=== PATIENT | female | born 1950 | race Asian ===

== ENCOUNTER 2018-05-02 10:08 | Day surgery (SDC) | payer MEDICARE, OTHER ==
[~2018-05-02] VITALS: Ht 160 cm; Wt 58.1 kg
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
[2018-05-02 11:23] LABS: BASOPHILS % (AUTO) 0 % (0-10); EOSINOPHILS % (AUTO) 0 % (0-10); HEMATOCRIT 26 % (35-52); HEMOGLOBIN 8.8 G/DL (11.5-16.0); LYMPHOCYTES # (AUTO) 1.3 X 10^3 (1.0-4.0); LYMPHOCYTES % (AUTO) 15 % (12-44); MEAN CORPUSCULAR HEMOGLOBIN 30 PG (25-34); MEAN CORPUSCULAR HGB CONC 34 G/DL (32-36); MEAN CORPUSCULAR VOLUME 88 FL (80-99); MEAN PLATELET VOLUME 9.5 FL (7.4-10.4); MONOCYTES # (AUTO) 0.3 X 10^3 (0.0-1.0); MONOCYTES % (AUTO) 3 % (0-12); NEUTROPHILS % (AUTO) 81 % (42-75); PLATELET COUNT 293 10^3/uL (130-400); RED BLOOD COUNT 2.95 10^6/uL (4.35-5.85); RED CELL DISTRIBUTION WIDTH 13.4 % (10.0-14.5); WHITE BLOOD COUNT 8.7 10^3/uL (4.3-11.0)
[2018-05-02 11:48] LABS: ALANINE AMINOTRANSFERASE 16 U/L (0-55); ALKALINE PHOSPHATASE 57 U/L (40-136); BILIRUBIN,TOTAL 0.2 MG/DL (0.1-1.0); BUN/CREATININE RATIO 45; CALCIUM 8.9 MG/DL (8.5-10.1); CARBON DIOXIDE 23 MMOL/L (21-32); CHLORIDE 105 MMOL/L (98-107); CREATININE SERUM 0.67 MG/DL (0.60-1.30); GFR ESTIMATED > 60; GLUCOSE 170 MG/DL (70-105); POTASSIUM 3.6 MMOL/L (3.6-5.0); SODIUM 135 MMOL/L (135-145); TOTAL PROTEIN 6.2 GM/DL (6.4-8.2)
[2018-05-02] MEDS ORDERED: RANI150T11 PO (12:30)
[2018-05-02] MEDS ORDERED: NS IV 1000 ML 1,000 ML ONE (12:44)
[2018-05-02] MEDS ORDERED: NS IV 1000 ML 1,500 ML IV ONE (13:00)
[2018-05-02 14:33] VITALS: BP_SYST 111; BP_SYST 118; BP_SYST 98; BP_DIAS 63; BP_DIAS 65; BP_DIAS 75
[2018-05-02] MEDS ORDERED: PROPOFOL INJECTION 50 ML IV ONE (15:41)
[2018-05-02] MEDS ORDERED: MIDAZOLAM 2 MG/2 ML (VERSED) VIAL ONE (15:41)
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
[2018-05-02] MEDS ORDERED: HURRICAINE EXT TUBE (BENZOCAINE) ONE (15:49)
--- NOTE | 2018-05-02 16:12 | Anesthesia-General Post-Op ---
MAC Patient Condition Mental Status/LOC: Same as Preop Cardiovascular: Satisfactory Nausea/Vomiting: Absent Respiratory: Satisfactory Pain: Controlled Complications: Absent Post Op Complications Complications None Follow Up Care/Instructions Patient Instructions None needed. Anesthesiology Discharge Order Discharge Order Patient is doing well, no complaints, stable vital signs, no apparent adverse anesthesia problems. No complications reported per nursing. LORETO RAMOS CRNA May 02, 2018 16:12
--- NOTE | 2018-05-02 16:19 | Progress Note-Post Operative ---
Post-Operative Progess Note Surgeon (s)/Furniture Rental Consultant (s) Surgeon JAY VERMA DO Furniture Rental Consultant: none Pre-Operative Diagnosis Melena, Anemia, Vaso-vagal Rxn, Cardiac Ectasia Post-Operative Diagnosis Clot covering Duodenal Ulcer Retained food in stomach Procedure & Operative Findings Date of Procedure 05/02/18 Procedure Performed/Findings EGD Anesthesia Type IV sedation by HIGH SCHOOL ASSISTANT FOOTBALL COACH Estimated Blood Loss Estimated blood loss (mL): none Specimens/Packing Specimens Removed none JAY VERMA DO May 02, 2018 16:19
[2018-05-02] MEDS ORDERED: HURRICAINE EXT TUBE (BENZOCAINE) XX PRN (16:30)
[2018-05-02] MEDS ORDERED: PANTOPRAZOLE INJECTION 200 MG in NS (IVPB) 50 ML IV SCH (16:30)
[2018-05-02 16:46] VITALS: BP 114/60
[2018-05-02] MEDS ORDERED: ACETAMINOPHEN 500 MG TAB (TYLENOL) PO PRN (18:00)
[2018-05-02] MEDS ORDERED: CATHETER FLUSH 10 ML SYR IV PRN (18:00)
[2018-05-02] MEDS ORDERED: ONDANSETRON 4 MG/2 ML (SDV) Z0FRAN IV PRN (18:00)
[2018-05-02] MEDS ORDERED: FLU QUADRIvalent (5+ YOA) 2018-2019 (AFLURIA) 0.5 ML IM ONE (18:30)
[2018-05-02] MEDS: NS W/KCL 20 MEQ/L 1,000 ML IV SCH (18:36)
[2018-05-02] MEDS ORDERED: ASPI-999 PO (20:04)
[2018-05-02] MEDS ORDERED: CLOP75TA69 PO (20:05)
[2018-05-02] MEDS ORDERED: SIMV20TA3 PO (20:08)
[2018-05-02] MEDS ORDERED: METO-333 PO (20:08)
[2018-05-02] MEDS ORDERED: NITR0.4T42 SL (20:09)
[2018-05-02] MEDS ORDERED: MELA1TAB15 PO (20:09)
[2018-05-02 20:48] VITALS: BP 119/67
[2018-05-02] MEDS: SUCRALFATE 1 GM (CARAFATE) TAB PO SCH (21:22)
[2018-05-02 23:41] VITALS: BP 102/57
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
[2018-05-03] MEDS: NS W/KCL 20 MEQ/L 1,000 ML IV SCH ×2 (02:31→12:00)
[2018-05-03 04:00] VITALS: BP 108/54
[2018-05-03] MEDS: SUCRALFATE 1 GM (CARAFATE) TAB PO SCH ×2 (06:16→12:26)
[2018-05-03 08:00] VITALS: BP 97/50
--- NOTE | 2018-05-03 10:24 | Discharge Inst-Simple/Standard ---
Discharge Inst-Standard Discharge Medications New, Converted or Re-Newed RX: Transmitted to Pharmacy Patient Instructions/Follow Up Plan of Care/Instructions/FU: Please continue to take your medications as written. Activity as Tolerated: Yes Discharge Diet: No Restrictions Return to The Hospital For: Lightheadedness, dark stools, vomiting blood, if you feel you are getting worse. ELKIN CASTAÑEDA MD May 03, 2018 10:24 am
[2018-05-03] MEDS ORDERED: SIMV20TA3 PO (10:25)
[2018-05-03] MEDS ORDERED: MELA5TAB14 PO (10:25)
[2018-05-03] MEDS ORDERED: METO-333 PO (10:25)
[2018-05-03] MEDS ORDERED: NITR0.4T39 SL (10:25)
[2018-05-03] MEDS ORDERED: CLOP75TA28 PO (10:25)
[2018-05-03] MEDS ORDERED: ASPI-999 PO (10:25)
--- NOTE | 2018-05-03 10:25 | Short Stay Summary-Hospitalist ---
History of Present Illness HPI/Chief Complaint Pt is a 68yoCF with a PMH CAD, HTN, and HLD who presented to the ER with CC of black stools and dizziness. This started on 04/27 but continued to worsen over the weekend. Yesterday she felt lightheaded with standing and with a BM and so decided to seek care. She has anemia at baseline but is unsure of her baseline she just knew that she has needed to be on iron in the past. 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 Source: patient Exam Limitations: no limitations Date Seen 05/03/18 Time Seen by a Provider: 10:25 Attending Physician Elkin Villalobos MD PCP No,Local Physician Referring Physician JAY VERMA DO Date of Admission May 02, 2018 at 3:28 pm Home Medications & Allergies Home Medications Reviewed patient Home Medication Reconciliation performed by pharmacy medication reconciliations production maintenance technician and/or nursing. Patients Allergies have been reviewed. Allergies Allergies Coded Allergies oxycodone (Verified Allergy, Unknown, hives, 05/02/18) sulfamethoxazole (Verified Allergy, Unknown, 05/02/18) trimethoprim (Verified Allergy, Unknown, 05/02/18) Past Rbvgjxl-Inoauy-Bxeumj Hx Past Med/Social Hx: Reviewed Nursing Past Med/Soc Hx Patient Social History Marrital Status: Alcohol Use: Rarely Uses Number of Drinks Today: 0 Alcohol Beverage of Choice: Wine Recreational Drug Use: No Smoking Status: Never a Smoker Physical Abuse Screen: No Sexual Abuse: No Recent Foreign Travel: No Contact w/other who traveled: No Recent Hopitalizations: No Recent Infectious Disease Expo: No Immunizations Up To Date Date of Pneumonia Vaccine: May 02, 2013 Seasonal Allergies Seasonal Allergies: Yes (occasionally w pollen) Past Medical History Surgeries: Section, Orthopedic Cardiac: Coronary Artery Disease, High Cholesterol, Hypertension : No Menopausal Gastrointestinal: Gastrointestinal Bleed, Ulcer Hearing Impairment: Denies History of Blood Disorders: No Adverse Reaction to Blood Sofia: No (HAD BLOOD TRANSFUSION IN [facility] 1982 [facility]) Family History Reviewed Nursing Family Hx Cancer (father of "bone cancer that spread everywhere"), Hypertension ( mother) Review of Systems Constitutional: dizziness EENTM: no symptoms reported Respiratory: no symptoms reported Cardiovascular: No chest pain, No palpitations, No syncope Gastrointestinal: No abdominal pain; diarrhea, melena; No nausea, No vomiting Genitourinary: no symptoms reported Musculoskeletal: no symptoms reported Skin: no symptoms reported Psychiatric/Neurological: No Symptoms Reported Physical Exam Physical Exam Vital Signs Vital Signs - First Documented 05/02/18 10:20 Temp 98.2 Pulse 73 Resp 18 B/P (MAP) 125/76 (92) Pulse Ox 98 O2 Delivery Room Air Capillary Refill : Less Than 3 Seconds Height, Weight, BMI Height: 5'3.00" Weight: 128lbs. 3.0oz. [id number]; 22.7 BMI Method:Stated General Appearance: No Apparent Distress, WD/WN HEENT: PERRL/EOMI, Moist Mucous Membranes Neck: Non Tender, Supple Respiratory: Lungs Clear, No Respiratory Distress Cardiovascular: Regular Rate, Rhythm, No Murmur Gastrointestinal: Normal Bowel Sounds, Non Tender, Soft Extremity: Normal Capillary Refill, No Calf Tenderness Neurologic/Psychiatric: Alert, Oriented x3, Normal Mood/Affect Skin: Normal Color, Warm/Dry Results Results/Procedures Labs Laboratory Tests 05/02/18 10:52 Patient resulted labs reviewed. Short Stay Diagnosis Discharge Diagnosis-Short Stay Admission Diagnosis Upper GI bleed Final Discharge Diagnosis Upper Gi Bleed Conclusion Plan Upper GI Bleed EGD done yesterday with ulcer and clot covering ulcer Plan to follow up on Monday (05/07) with Dr Verma for colonoscopy Discussed with Dr Verma who will arrange iron infusion HTN Hold home BP for soft BPs CAD Hold ASA/Plavix from GI bleed No history of stents Clinical Quality Measures DVT/VTE Risk/Contraindication: Risk Factor Score Per Nursin RFS Level Per Nursing on Admit: 2=Moderate ELKIN VILLALOBOS MD May 03, 2018 10:25 am
[2018-05-03] MEDS ORDERED: ASPI-983 PO (10:27)
[2018-05-03] MEDS ORDERED: MULT-35 PO (10:29)
[2018-05-03] MEDS ORDERED: CALC-78 PO (10:29)
[2018-05-03] MEDS ORDERED: OMEG10005 PO (10:29)
[2018-05-03] MEDS ORDERED: SUCR1TAB PO (10:35)
[2018-05-03] MEDS ORDERED: PANT40TA2 PO (10:35)
--- NOTE | 2018-05-03 11:37 | Progress Note ---
Subjective Time Seen by a Provider: 10:08 Subjective/Events-last exam Pt seen and examined, states she feels fine and slightly stronger than yesterday. She is tolerating diet. Review of Systems General: No Chills, No Night Sweats Pulmonary: No Dyspnea, No Cough Cardiovascular: No: Chest Pain, Palpitations Gastrointestinal: No: Nausea, Vomiting, Abdominal Pain Objective Exam Vital Signs Date Time Temp Pulse Resp B/P (MAP) Pulse Ox O2 Delivery O2 Flow Rate FiO2 05/03/18 08:00 98.0 85 20 97/50 (66) 100 Room Air 05/03/18 04:00 98.1 79 16 108/54 (72) 100 Room Air 05/02/18 23:41 98.4 87 18 102/57 (72) 100 Room Air 05/02/18 20:48 98.8 85 20 119/67 (84) 97 Room Air 05/02/18 17:15 Room Air 05/02/18 16:46 98.2 82 20 114/60 (78) 96 Room Air 05/02/18 15:25 98.3 83 18 117/67 98 Room Air 05/02/18 14:33 111/63 (79) 118/75 (89) 98/65 (76) I & O 05/03/18 07:00 Intake Total 1270 ml Output Total 750 ml Balance 520 ml Capillary Refill : Less Than 3 Seconds General Appearance: No Apparent Distress, WD/WN HEENT: PERRL/EOMI, Pharynx Normal Respiratory: Chest Non Tender, Lungs Clear, Normal Breath Sounds, No Accessory Muscle Use, No Respiratory Distress Cardiovascular: Regular Rate, Rhythm, No Edema, No Murmur Peripheral Pulses: 2+ Dorsalis Pedis (R), 2+ Left Dors-Pedis (L), 2+ Radial Pulses (R), 2+ Radial Pulses (L) Gastrointestinal: normal bowel sounds, non tender, soft, no organomegaly, no pulsatile mass Extremity: Normal Capillary Refill, Normal Inspection, Normal Range of Motion, Non Tender, No Calf Tenderness, No Pedal Edema Neurologic/Psychiatric: Alert, Oriented x3, No Motor/Sensory Deficits, Normal Mood/Affect, furnace filler II-XII Norm as Tested Results Lab Laboratory Tests 05/02/18 17:30: Assessment/Plan Assessment/Plan Assessment/Plan Hematoma over Suspected Bleeding Duodenal ulcer - this was cause of her Melena, Anemia, Vaso-Vagal reaction Pt will be sent home, do colon prep on monday and is scheduled for EGD and colonoscopy on Monday. Colonscopy is mainly for screening, EGD is being done because of retained food in stomach (need to make sure no ulcers anywhere else). She needs to stop ASA and continue protonix PO as an outpt. All questions answered to her satisfaction. She may get iron infusion on Monday. Cardiac Ectasia Abnormal Coagulation secondary to Plavix and ASA I discussed both procedures with her; risks and complications not limited to pain, bleeding, esophageal perforation or intestinal perforation. All questions answered to her satisfaction. Clinical Quality Measures DVT/VTE Risk/Contraindication: Risk Factor Score Per Nursin RFS Level Per Nursing on Admit: 2=Moderate JAY VERMA DO May 03, 2018 11:37
[2018-05-03 12:00] VITALS: BP 106/58
[2018-05-03 14:39] VITALS: BP 106/58
[2018-05-07] MEDS ORDERED: PANT40TA2 PO (11:43)
[2018-05-07] MEDS ORDERED: SUCR1TAB PO (11:43)
== END 2018-05-03 14:47 | disposition home or self-care (01) ==
LOC: ER 10:09 → 4TH 15:26 → ENDO 15:26 → UNDOADMOB 15:28 → 4TH 15:28 → ENDO 05-03 14:47 → UNDODISOB 05-03 14:47
PROVIDERS: ATTEND Surgery
DX: K26.4 Chronic or unspecified duodenal ulcer with hemorrhage (principal); R79.1 Abnormal coagulation profile; T45.8X5A Adverse effect of other primarily systemic and hematological agents, initial encounter; T39.015A Adverse effect of aspirin, initial encounter; I10 Essential (primary) hypertension; I25.10 Atherosclerotic heart disease of native coronary artery without angina pectoris; D64.9 Anemia, unspecified; R55 Syncope and collapse; E78.5 Hyperlipidemia, unspecified; K21.9 Gastro-esophageal reflux disease without esophagitis; Z79.899 Other long term (current) drug therapy
CPT/HCPCS: 36415; 80053; 82728; 83540; 85025; 86850; 86900; 86901; 93005; 96360

== ENCOUNTER 2018-05-07 09:05 | Day surgery (SDC) | payer MEDICARE, OTHER ==
[~2018-05-07] VITALS: Ht 157.5 cm; Wt 54.5 kg
[~2018-05-07 09:05] MED LIST: ASPI-983 PO; ASPI-999 PO; CALC-78 PO; CLOP75TA28 PO; CLOP75TA69 PO; MELA1TAB15 PO; MELA5TAB14 PO; METO-333 PO; MULT-35 PO; NITR0.4T39 SL; NITR0.4T42 SL; OMEG10005 PO; PANT40TA2 PO; RANI150T11 PO; SIMV20TA3 PO; SUCR1TAB PO
[2018-05-07 10:25] VITALS: BP 115/75
[2018-05-07] MEDS ORDERED: PROPOFOL INJECTION 50 ML IV ONE (10:49)
--- NOTE | 2018-05-07 10:52 | Progress Note-Pre Operative ---
Pre-Operative Progress Note H&P Reviewed The H&P was reviewed, patient examined and no changes noted. Time Seen by Provider: 10:47 Date H&P Reviewed: May 07, 2018 Time H&P Reviewed: 10:47 Pre-Operative Diagnosis: Duodenal Ulcer, GI bleed, Screening colonoscopy JAY VERMA DO May 07, 2018 10:52
[2018-05-07] MEDS ORDERED: LACTATED RINGERS 1,000 ML IV STA (10:53)
[2018-05-07] MEDS ORDERED: MIDAZOLAM 2 MG/2 ML (VERSED) VIAL ONE (11:00)
[2018-05-07] MEDS ORDERED: HURRICAINE EXT TUBE (BENZOCAINE) XX PRN (11:00)
[2018-05-07] MEDS ORDERED: meTOprolol 5 MG/5 ML (LOPRESSOR) VIAL ONE (11:06)
[2018-05-07] MEDS ORDERED: GLYCOPYRROLATE 0.2 MG/ML (ROBINUL) 2 ML VIAL ONE (11:13)
--- NOTE | 2018-05-07 11:42 | Progress Note-Post Operative ---
Post-Operative Progess Note Surgeon (s)/Dressmaker Or Tailor (s) Surgeon JAY VERMA DO Dressmaker Or Tailor: none Pre-Operative Diagnosis Duodenal Ulcer, GI bleed, Screening colonoscopy Post-Operative Diagnosis Duodenal Ulcer - healed Gastritis/Duodenitis Small Hiatal Hernia Colon Polyps Internal Hemorrhoids Procedure & Operative Findings Date of Procedure 05/07/18 Procedure Performed/Findings 1. EGD with biopsy 2. Colonoscopy with hot bx Anesthesia Type IV Sedation by TITLE VEHICLE SERVICE ATTENDANT Estimated Blood Loss Estimated blood loss (mL): scant Specimens/Packing Specimens Removed Duodenal bx Antral bx TI bx Colon polyp hot bx, Transverse, Descending, Sigmoid colon JAY VERMA DO May 07, 2018 11:42
[2018-05-07] MEDS ORDERED: PANT40TA2 PO (11:43)
[2018-05-07] MEDS ORDERED: SUCR1TAB PO (11:43)
--- NOTE | 2018-05-07 11:44 | Endoscopy Discharge Instruct ---
Endo Procedure/Findings Findings 1.: Hiatal Hernia, Gastritis 2.: Polyp 3.: Internal Hemorrhoids Discharge Instructions - Activity: You might feel a little sleepy until tomorrow. This is due to the medicine you received to relax you. Until tomorrow, you should: NOT drive a car, operate machinery or power tools. NOT drink any alcoholic beverages. NOT make any important decisions or sign importortant papers. Do not return to work until tomorrow, unless otherwise instructed. Resume previous activities tomorrow. Diet: Start by taking liquids. If you tolerate liquids, advance to solid food. Instructions: 1.: Colonscopy in 3 years, EGD in 6-8 weeks Notify Physician - If you experience excessive bleeding, unusual abdominal pain, fever, or chest pain, contact your doctor immediately. Follow-Up: - I have received and understand the above instructions and will call my doctor if I have any further questions. Patient Signature Date Nurse Signature Other (Relationship) JAY VERMA DO May 07, 2018 11:44
[2018-05-07] MEDS ORDERED: HURRICAINE EXT TUBE (BENZOCAINE) ONE (11:45)
[2018-05-07 12:05] VITALS: BP 95/55
[2018-05-07 12:55] VITALS: BP 92/60
[2018-05-07 13:32] VITALS: BP 92/60
--- NOTE | 2018-05-07 14:02 | Anesthesia-General Post-Op ---
MAC Patient Condition Mental Status/LOC: Same as Preop Cardiovascular: Satisfactory Nausea/Vomiting: Absent Respiratory: Satisfactory Pain: Controlled Complications: Absent Post Op Complications Complications None Follow Up Care/Instructions Patient Instructions None needed. Anesthesiology Discharge Order Discharge Order Patient is doing well, no complaints, stable vital signs, no apparent adverse anesthesia problems. No complications reported per nursing. DEMETRI NICE CRNA May 07, 2018 14:02
--- NOTE | 2018-05-07 14:08 | OPERATIVE REPORT ---
DATE OF SERVICE: 05/07/2018 PREOPERATIVE DIAGNOSES: 1. Duodenal ulcer. 2. Gastrointestinal bleed. 3. Anemia. POSTOPERATIVE DIAGNOSES: 1. Duodenal ulcer. 2. Gastrointestinal bleed. 3. Anemia. 4. Gastritis. 5. Small hiatal hernia. 6. Colon polyps. 7. Internal hemorrhoids. PROCEDURES: 1. EGD with biopsy. 2. Colonoscopy with hot biopsy. SURGEON: Carmelo Carter DO CONSUMER LOAN OFFICER: None. ANESTHESIA: IV sedation by the JAILER CHIEF. SPECIMEN: One biopsy from the duodenum, one biopsy from the antrum as well as one biopsy from the terminal ileum and then 3 polyps, transverse colon, descending colon and sigmoid colon. BLOOD LOSS: Scant. FLUIDS: Per anesthesia. POSTOPERATIVE CONDITION: Stable. INDICATION FOR PROCEDURE: The patient is a 68-year-old female, who has a history of duodenal ulcer, GI bleed and anemia, needed to make sure this ulcer stopped bleeding as well as did not clear the stomach the last time. She was given a colonoscopy, just a screening colonoscopy. FINDINGS: The patient had a little bit of gastritis and duodenitis. The ulcer appeared healed. Nothing in the upper stomach. Colonoscopy showed multiple small flat polyps, one taken from the descending colon, one from the transverse colon and one from the sigmoid as well as some small internal hemorrhoids. PROCEDURE NOTE: After informed consent was obtained, the patient was brought to the endoscopy suite and placed on the bed in left lateral decubitus position. She was administered IV sedation by the JAILER CHIEF, who then monitored her vitals the entire time, heart rate, blood pressure and pulse ox and the scope was inserted down the mouth into the esophagus and down into the stomach, pushed into the first portion of the duodenum, could see where the area looked like the area where it had previously bled, but there was no bleeding and no large ulcer, a little bit of redness in here, did a biopsy in this area, pulled back, thought I saw another small possible ulcer in the antrum, did another biopsy here. Retroflexed, did not see any ulcerations or erythema in the upper portion of the stomach and the cardia, looked back so what looked like a very small hiatal hernia. At this point, then pulled the scope up out of the stomach and into the first portion of the esophagus. GE junction looked good. No creeping up of the Z-line and then pulled the scope out of the esophagus and out the mouth. Switched gloves and switched scopes, went to the other side and started the colonoscopy. Pushed all the way in to about 140 cm, able to get to the cecum, took a picture of the appendiceal orifice and then able to get into the terminal ileum and the terminal ileum looked like it had almost a loss of villi, so I did a couple of biopsies in the terminal ileum. These were sent to pathology and then slowly withdrew the scope insufflating to look circumferentially at the fox looking at the cecum, up the ascending colon to hepatic flexure and just into the transverse colon, saw small flat polyp, able to remove this in 3 pieces using the hot biopsy to do this and then continued down the transverse colon to the splenic flexure and then into the descending colon. In the descending colon, saw another small polyp, did another hot biopsy and then down into the sigmoid saw another flat small polyp, did another hot biopsy and continued down into the rectum, retroflexed in the rectal vault, saw some minimal internal hemorrhoids. No other obvious pathology. Removed the scope. The patient tolerated the procedure and she was recovered in the endoscopy suite. Job ID: [id number] DocumentID: [id number] Dictated Date: 05/07/2018 13:49:40 Window Clerk Date: 05/07/2018 14:07:53 Dictated By: CARMELO CARTER DO
== END 2018-05-07 13:05 | disposition home or self-care (01) ==
LOC: ENDO 09:05
PROVIDERS: ATTEND Surgery
DX: Z12.11 Encounter for screening for malignant neoplasm of colon (principal); D12.3 Benign neoplasm of transverse colon; K63.5 Polyp of colon; K64.8 Other hemorrhoids; K29.50 Unspecified chronic gastritis without bleeding; K26.9 Duodenal ulcer, unspecified as acute or chronic, without hemorrhage or perforation; K92.2 Gastrointestinal hemorrhage, unspecified; D64.9 Anemia, unspecified; K44.9 Diaphragmatic hernia without obstruction or gangrene; K31.9 Disease of stomach and duodenum, unspecified; I10 Essential (primary) hypertension; I25.10 Atherosclerotic heart disease of native coronary artery without angina pectoris; E78.5 Hyperlipidemia, unspecified; K21.9 Gastro-esophageal reflux disease without esophagitis; Z79.899 Other long term (current) drug therapy; Z79.82 Long term (current) use of aspirin; Z79.02 Long term (current) use of antithrombotics/antiplatelets
CPT/HCPCS: 88305; 88341; 88342